=== PATIENT | female | born 1985 | race Caucasian/White ===

== ENCOUNTER 2017-01-17 07:11 | Emergency (ER) | payer BC ==
[~2017-01-17] VITALS: Ht 170.2 cm; Wt 102.1 kg
[~2017-01-17 07:11] MED LIST: /DULO30CA OR; FISH1000 OR; LEVO75TA2 OR; TOPI50TA OR; TRI; TRINTAB11 PO
[2017-01-17] MEDS ORDERED: MACR100C3 PO (07:21)
[2017-01-17] MEDS ORDERED: METF1000 PO (07:21)
[2017-01-17] MEDS ORDERED: OXYC1TAB23 PO (07:21)
[2017-01-17] MEDS ORDERED: FLUO10CA8 PO (07:21)
[2017-01-17] MEDS ORDERED: CYCL10TA PO (07:21)
[2017-01-17] MEDS ORDERED: KETOROLAC 30 MG/ML VIAL (J1885) IV ONE (08:00)
[2017-01-17] MEDS ORDERED: NS 1,000 ML IV ONE (08:00)
[2017-01-17 08:26] LABS: BASO # 0.1 K/mm3 (0.0-0.2); BASO % 0.7 % (0.0-1.0); EOS # 0.3 K/mm3 (0.0-0.50); EOS % 3.5 % (0.0-3.0); LARGE UNSTAINED CELL # 0.1 K/mm3 (0.0-0.4); LARGE UNSTAINED CELL % 0.8 % (0.0-4.0); LYMPH # 1.4 K/mm3 (1.5-4.5); LYMPH % 14.1 % (24.0-44.0); MEAN CORPUSCULAR HGB CONC 34.8 g/dl (32.0-36.5); MEAN CORPUSCULAR VOLUME 83.5 fl (80.0-96.0); MONO # 0.2 K/mm3 (0.0-0.8); MONO % 2.5 % (0.0-5.0); NEUTROPHILS # 7.4 K/mm3 (1.8-7.7); NEUTROPHILS % 78.2 % (36.0-66.0); PLATELET COUNT, AUTOMATED 212 k/mm3 (150-450); WHITE BLOOD COUNT 9.4 K/mm3 (4.0-10.0)
[2017-01-17 08:43] LABS: ALBUMIN/GLOBULIN RATIO 1.14 (1.00-1.93); ALKALINE PHOSPHATASE 62 U/L (45-117); ALT/SGPT 22 U/L (12-78); ANION GAP 12 MEQ/L (8-16); AST/SGOT 23 U/L (15-37); BILIRUBIN,TOTAL 0.3 MG/DL (0.2-1.0); BLOOD UREA NITROGEN 9 MG/DL (7-18); CALCIUM LEVEL 8.7 MG/DL (8.5-10.1); CARBON DIOXIDE LEVEL 20 MEQ/L (21-32); CHLORIDE LEVEL 105 MEQ/L (98-107); CREATININE FOR GFR 0.59 MG/DL (0.55-1.02); GLOMERULAR FILTRATION RATE > 60.0 (>60); GLUCOSE, FASTING 126 MG/DL (70-105); POTASSIUM SERUM 4.2 MEQ/L (3.5-5.1); SODIUM LEVEL 137 MEQ/L (136-145); TOTAL PROTEIN 7.5 GM/DL (6.4-8.2)
--- NOTE | 2017-01-17 09:12 | REP ---
CT ABDOMEN AND PELVIS WITHOUT CONTRAST: CT abdomen and pelvis performed without oral or IV contrast with sagittal and coronal reconstruction images. The visualized lung bases demonstrate no evidence of infiltrate. The liver, spleen, gallbladder, adrenals, pancreas and kidneys are unremarkable. No renal, ureteral or bladder calculus is seen and there is no hydroureteronephrosis. There is no abdominal aortic aneurysm. There is no adenopathy. There is no free air or free fluid. There is no bowel wall thickening. The appendix is normal. Metallic partha and screws are seen in the lumbar spine on the left. Left ovarian cyst is present measuring 4.5 cm in diameter. There is no other definite pelvic abnormality. Urinary bladder is not well distended and not well evaluated. IMPRESSION: Left ovarian cyst 4.5 cm in diameter. No free air or free fluid. No renal or ureteral calculus. Appendix is normal. Signed by Tmia Sanchez MD 01/17/2017 07:43 P
[2017-01-17] MEDS ORDERED: ZOFR4TAB3 PO (09:42)
[2017-01-17] MEDS ORDERED: KETO10TAB PO (09:42)
[2017-01-17 09:46] VITALS: BP 127/71
== END 2017-01-17 09:51 | disposition home or self-care (01) ==
LOC: M ED 08:14
DX: N83.292 Other ovarian cyst, left side (principal); G43.909 Migraine, unspecified, not intractable, without status migrainosus; E28.2 Polycystic ovarian syndrome; E03.9 Hypothyroidism, unspecified; F41.9 Anxiety disorder, unspecified; Z79.899 Other long term (current) drug therapy; Z79.3 Long term (current) use of hormonal contraceptives
CPT/HCPCS: 74176; 80053; 81001; 81025; 83605; 83690; 85025; 87040; 87086; 96374; 96375; 99283; J1885

== ENCOUNTER 2017-01-24 04:58 | Emergency (ER) | payer BC ==
[~2017-01-24] VITALS: Ht 170.2 cm; Wt 102.1 kg
[~2017-01-24 04:58] MED LIST changes: +CYCL10TA PO; +FLUO10CA8 PO; +KETO10TAB PO; +MACR100C3 PO; +METF1000 PO; +OXYC1TAB23 PO; +ZOFR4TAB3 PO
[2017-01-24] MEDS ORDERED: birth control (05:12)
[2017-01-24] MEDS ORDERED: LISI25TA GT (05:13)
[2017-01-24] MEDS ORDERED: GEMF600T PO (05:13)
[2017-01-24] MEDS ORDERED: PROMETHAZINE INJ 25 MG/ML VIAL (J2550) IV ONE (07:00)
[2017-01-24] MEDS ORDERED: NS 1,000 ML IV ONE (07:00)
[2017-01-24] MEDS ORDERED: MORPHINE 4 MG/ML 1ML SYRINGE IV ONE (07:00)
[2017-01-24 08:35] LABS: BASO % 0.5 % (0.0-1.0); EOS # 0.2 K/mm3 (0.0-0.50); LARGE UNSTAINED CELL # 0.1 K/mm3 (0.0-0.4); LARGE UNSTAINED CELL % 1.1 % (0.0-4.0); LYMPH # 1.3 K/mm3 (1.5-4.5); LYMPH % 14.6 % (24.0-44.0); MEAN CORPUSCULAR HEMOGLOBIN 30.4 pg (27.0-33.0); MEAN CORPUSCULAR HGB CONC 35.6 g/dl (32.0-36.5); MEAN CORPUSCULAR VOLUME 85.4 fl (80.0-96.0); MONO # 0.2 K/mm3 (0.0-0.8); MONO % 2.5 % (0.0-5.0); NEUTROPHILS # 7.1 K/mm3 (1.8-7.7); NEUTROPHILS % 79.4 % (36.0-66.0); PLATELET COUNT, AUTOMATED 218 k/mm3 (150-450); RED CELL DISTRIBUTION WIDTH 14.6 % (11.5-14.5)
[2017-01-24 08:36] LABS: CONTROL LINE UCG INT CTR LINE PRESENT
[2017-01-24 08:57] LABS: ANION GAP 11 MEQ/L (8-16); BLOOD UREA NITROGEN 8 MG/DL (7-18); CALCIUM LEVEL 8.6 MG/DL (8.5-10.1); CARBON DIOXIDE LEVEL 20 MEQ/L (21-32); CHLORIDE LEVEL 108 MEQ/L (98-107); CREATININE FOR GFR 0.59 MG/DL (0.55-1.02); GLOMERULAR FILTRATION RATE > 60.0 (>60); GLUCOSE, FASTING 112 MG/DL (70-105); POTASSIUM SERUM 4.1 MEQ/L (3.5-5.1); SODIUM LEVEL 139 MEQ/L (136-145)
--- NOTE | 2017-01-24 09:17 | REP ---
PELVIC ULTRASOUND: Real-time sonographic evaluation of the pelvis performed utilizing transabdominal and endovaginal technique. The bladder measures 9.9 x 8.8 x 10.5 cm. The uterus measures 9.2 x 5.4 x 6.8 cm. Endometrial thickness 15 mm. There is no endometrial fluid collection. Right ovary measures 3.7 x 2.5 x 4.3 cm and contains a dominant follicle 1.7 cm in diameter. Left ovary measures 5.9 x 4.6 x 5.9 cm and contains a simple cyst 5.2 x 3.8 x 5.4 cm. There is no evidence of ovarian torsion, with blood flow seen in each ovary with duplex Doppler evaluation, RI right ovary 0.52 and left ovary 0.52. No free fluid is seen. IMPRESSION: Left ovarian cyst 5.4 cm in diameter appears simple, with no torsion or free fluid. Signed by Tima Sanchez MD 01/24/2017 04:06 P
[2017-01-24] MEDS ORDERED: KETOROLAC 30 MG/ML VIAL (J1885) IV ONE (10:30)
[2017-01-24 11:36] VITALS: BP 127/74
[2017-01-24] MEDS ORDERED: NORCOTAB PO (11:38)
[2017-01-24] MEDS ORDERED: IBUP80TA PO (11:38)
--- NOTE | 2017-01-25 06:43 | ED PDOC ---
Post-Departure Follow-Up certified letter sent to pt re formal read of pelvic us. cyst is large and she needs referral to regulatory intern. i did not see that on chart. please ensure. Sukumar Meyer MD January 25, 2017 06:43
== END 2017-01-24 11:49 | disposition home or self-care (01) ==
LOC: M ED 06:02
DX: N83.292 Other ovarian cyst, left side (principal); Z79.899 Other long term (current) drug therapy
CPT/HCPCS: 36415; 76830; 76856; 80048; 81001; 84703; 85025; 93976; 96361; 96374; 96375; 99283; J1885

== ENCOUNTER → 2019-06-04 | Outpatient (REF) | payer BC ==
[~2019-06-04] MED LIST changes: -/DULO30CA OR; +CYMB1CAP5 OR; +GEMF600T5 PO; +HYDR-3715 PO; +IBUP80TA PO; +LISI2.5T76 GT; -MACR100C3 PO; +MACR100C43 PO; -METF1000 PO; +METF10004 PO; +ZOFR4TAB14 PO; -ZOFR4TAB3 PO; +birth control
== END ==
LOC: M SFHCPLAZ 17:14
PROVIDERS: ATTEND Dermatology
DX: D44.7 Neoplasm of uncertain behavior of aortic body and other paraganglia (principal)

== ENCOUNTER → 2023-04-17 | Outpatient (CLI) | payer BC ==
[~2023-04-17] MED LIST changes: +CYCL-707 PO; -CYCL10TA PO; +FLUO10CA18 PO; -FLUO10CA8 PO; -LISI2.5T76 GT; +LISI2.5T8 GT
[2023-04-17 14:31] LABS: BASO # 0.1 10^3/uL (0.0-0.2); BASO % 0.9 % (0.0-1.0); EOS # 0.3 10^3/uL (0.0-0.5); EOS % 4.1 % (0.0-3.0); HEMATOCRIT 40.6 % (36.0-47.0); HEMOGLOBIN 13.2 g/dl (12.0-15.5); LYMPH # 2.2 10^3/uL (1.5-5.0); LYMPH % 28.3 % (24.0-44.0); MEAN CORPUSCULAR HEMOGLOBIN 26.5 pg (27.0-33.0); MEAN CORPUSCULAR HGB CONC 32.5 g/dl (32.0-36.5); MEAN CORPUSCULAR VOLUME 81.4 fl (80.0-96.0); MONO # 0.4 10^3/uL (0.0-0.8); MONO % 5.3 % (2.0-8.0); NEUTROPHILS # 4.8 10^3/uL (1.5-8.5); NEUTROPHILS % 60.4 % (36.0-66.0); PLATELET COUNT, AUTOMATED 223 10^3/uL (150-450); RED BLOOD COUNT 4.99 10^6/uL (4.00-5.40); WHITE BLOOD COUNT 7.9 10^3/uL (4.0-10.0)
[2023-04-17 14:53] LABS: ERYTHROCYTE SEDIMENTATION RATE 8 mm/hr (0-20)
[2023-04-17 15:03] LABS: C REACTIVE PROTEIN QUANTITATIV < 0.40 MG/DL (<1.0)
[2023-04-17 15:04] LABS: ALBUMIN 4.1 G/DL (3.2-5.2); ALKALINE PHOSPHATASE 74 U/L (46-116); ALT/SGPT 40 U/L (7.0-40); AST/SGOT 35 U/L (<34); BILIRUBIN,TOTAL 0.6 MG/DL (0.3-1.2); BLOOD UREA NITROGEN 10 MG/DL (9-23); CALCIUM LEVEL 10.1 MG/DL (8.5-10.1); CARBON DIOXIDE LEVEL 25 MMOL/L (20-31); CHLORIDE LEVEL 102 MMOL/L (98-107); CREATININE FOR GFR 0.47 MG/DL (0.55-1.30); GLOMERULAR FILTRATION RATE > 60.0 (>60); GLUCOSE, FASTING 187 MG/DL (60-100); POTASSIUM SERUM 4.2 MMOL/L (3.5-5.1); SODIUM LEVEL 140 MMOL/L (136-145); TOTAL PROTEIN 7.2 G/DL (5.7-8.2)
== END ==
LOC: M RAD 13:53
PROVIDERS: ATTEND Physician Assistant
DX: L40.9 Psoriasis, unspecified (principal)